=== PATIENT | female | born 1940 | race Two or more races ===

== ENCOUNTER 2021-06-01 09:58 | Inpatient (IN) | payer OTHER ==
[~2021-06-01] VITALS: Ht 152.4 cm; Wt 52.7 kg
[2021-06-01 10:45] LABS: BASOPHILS % (AUTO) 0.5 % (0.0-2.0); EOSINOPHILS % (AUTO) 7.9 % (1.0-6.0); HEMATOCRIT 40.1 % (36-46); HEMOGLOBIN 13.4 g/dL (12.0-16.0); LYMPHOCYTES # (AUTO) 1.3 K/uL (1.0-4.8); LYMPHOCYTES % (AUTO) 15.9 % (22.0-44.0); MEAN CORPUSCULAR HEMOGLOBIN 27.2 pg (26.0-34.0); MEAN CORPUSCULAR HGB CONC 33.5 G/dL (31.0-37.0); MEAN CORPUSCULAR VOLUME 81 fL (80-100); MONOCYTES # (AUTO) 0.7 K/uL (0.1-1.0); MONOCYTES % (AUTO) 8.2 % (2.0-9.0); NEUTROPHILS # (AUTO) 5.6 K/uL (1.8-7.7); NEUTROPHILS % (AUTO) 67.5 % (40.0-70.0); PLATELET COUNT (AUTO) 287 K/uL (150-450); RED BLOOD CELL COUNT(AUTO) 4.94 MIL/uL (4.00-5.20); RED CELL DISTRIBUTION WIDTH 14.3 % (11.5-14.5)
[2021-06-01 10:56] LABS: CALCIUM, TOTAL 9.8 mg/dL (8.8-10.5); CREATININE 1.27 mg/dL (0.60-1.30); POTASSIUM 4.2 mmol/L (3.5-5.1)
[2021-06-01 11:22] LABS: ALBUMIN 4.1 g/dL (3.4-5.0); TOTAL PROTEIN, SERUM 9.6 g/dL (6.4-8.2)
[2021-06-01 11:49] LABS: COVID AG,FIA SOURCE NASOPHARYNGEAL
[2021-06-01 17:07] VITALS: BP 137/52
[2021-06-01] MEDS ORDERED: ALBUTEROL SULFATE 2.5 MG/0.5 ML NEB SOLUTION NEB PRN ×2 (17:15→21:00)
[2021-06-01] MEDS ORDERED: IPRATROPIUM BROMIDE 0.5 MG/2.5 ML NEB SOLUTION NEB PRN ×2 (17:15→21:00)
[2021-06-01] MEDS: MethylPREDNISolone SOD SUCC 40 MG/ML VIAL IVP SCH ×2 (18:13→23:01)
[2021-06-01] MEDS ORDERED: LISI-893 PO (18:41)
[2021-06-01] MEDS ORDERED: METF-1211 PO (18:41)
[2021-06-01] MEDS ORDERED: ASPI-1450 PO (18:41)
[2021-06-01] MEDS ORDERED: FURO40 PO (18:41)
[2021-06-01] MEDS ORDERED: ATOR40TA28 PO (18:41)
[2021-06-01] MEDS ORDERED: METO25XL PO (18:41)
[2021-06-01] MEDS ORDERED: LEVO50 PO (18:41)
[2021-06-01] MEDS ORDERED: ASPI-1444 PO (19:42)
[2021-06-01] MEDS ORDERED: PNEUMOCOCCAL VACCINE POLYVALENT 0.5 ML VIAL [PPSV23] IM. ONE (19:45)
[2021-06-01 19:53] VITALS: BP 133/80
[2021-06-01] MEDS ORDERED: ZOLPIDEM TARTRATE 5 MG TABLET PO PRN (21:00)
[2021-06-01] MEDS ORDERED: ACETAMINOPHEN 325 MG TABLET PO PRN (21:00)
[2021-06-01] MEDS ORDERED: HYDROCODONE/ACETAMINOPHEN 5-325 MG TABLET PO PRN (21:00)
[2021-06-01] MEDS ORDERED: BISACODYL 10 MG RECTAL RECTAL SUPPOSITORY PR PRN (21:00)
[2021-06-01] MEDS ORDERED: METOPROLOL SUCCINATE 25 MG ER TABLET PO SCH (21:00)
[2021-06-01] MEDS ORDERED: MORPHINE SULFATE 2 MG/ML SYRINGE IVP PRN (21:00)
[2021-06-01] MEDS ORDERED: MAGNESIUM HYDROXIDE SUSPENSION 30 ML UDCUP PO PRN (21:00)
[2021-06-01] MEDS ORDERED: ONDANSETRON HCL 4 MG/2 ML VIAL IVP PRN (21:00)
[2021-06-01] MEDS: DOCUSATE SODIUM 100 MG CAPSULE PO SCH (21:00)
[2021-06-01 22:07] LABS: GLUCOMETER DEV NAME(LOC) 5N.1C; GLUCOSE,POINT OF CARE 102 MG/DL (70-110)
[2021-06-01] MEDS: HEPARIN SODIUM,PORCINE 5,000 UNITS/ML VIAL SQ SCH (23:01)
[2021-06-01] MEDS: ATORVASTATIN CALCIUM 40 MG TABLET PO SCH (23:01)
[2021-06-02] VITALS (7 sets, daily range): BP systolic 112–138; BP diastolic 65–85
[2021-06-02] MEDS: LEVOTHYROXINE SODIUM 50 MCG TABLET PO SCH (06:01)
[2021-06-02] MEDS: MethylPREDNISolone SOD SUCC 40 MG/ML VIAL IVP SCH ×3 (08:30→23:09)
[2021-06-02] MEDS: HEPARIN SODIUM,PORCINE 5,000 UNITS/ML VIAL SQ SCH ×3 (08:30→23:09)
[2021-06-02] MEDS: PANTOPRAZOLE SODIUM 40 MG/VIAL IVP SCH (08:30)
[2021-06-02] MEDS: DOCUSATE SODIUM 100 MG CAPSULE PO SCH ×2 (08:31→20:10)
[2021-06-02] MEDS: LISINOPRIL 10 MG TABLET PO SCH (08:31)
[2021-06-02] MEDS: ASPIRIN 81 MG DR TABLET PO SCH (08:31)
[2021-06-02] MEDS ORDERED: FUROSEMIDE 40 MG TABLET PO SCH (09:00)
[2021-06-02 13:06] LABS: GLUCOMETER DEV NAME(LOC) 5N.3; GLUCOSE,POINT OF CARE 154 MG/DL (70-110)
[2021-06-02 18:21] LABS: GLUCOMETER DEV NAME(LOC) 5N.3; GLUCOSE,POINT OF CARE 224 MG/DL (70-110)
[2021-06-02] MEDS ORDERED: DEXTROSE 50%-WATER 25 GM/50 ML SYRINGE IVP PRN (19:30)
[2021-06-02] MEDS: ATORVASTATIN CALCIUM 40 MG TABLET PO SCH (20:06)
[2021-06-02] MEDS: INSULIN LISPRO 100 UNITS/ML SQ PRN (23:10)
[2021-06-03] VITALS (7 sets, daily range): BP systolic 106–141; BP diastolic 57–87
[2021-06-03 05:51] LABS: GLUCOMETER DEV NAME(LOC) 5N.3; GLUCOSE,POINT OF CARE 309 MG/DL (70-110)
[2021-06-03] MEDS: LEVOTHYROXINE SODIUM 50 MCG TABLET PO SCH (06:17)
[2021-06-03 06:51] LABS: GLUCOMETER DEV NAME(LOC) 5N.3; GLUCOSE,POINT OF CARE 134 MG/DL (70-110)
[2021-06-03] MEDS: PANTOPRAZOLE SODIUM 40 MG/VIAL IVP SCH (09:16)
[2021-06-03] MEDS: HEPARIN SODIUM,PORCINE 5,000 UNITS/ML VIAL SQ SCH ×3 (09:16→23:29)
[2021-06-03] MEDS: MethylPREDNISolone SOD SUCC 40 MG/ML VIAL IVP SCH ×3 (09:16→23:29)
[2021-06-03] MEDS ORDERED: REGADENOSON 0.4 MG/5 ML PF SYRINGE IVP ONE ×2 (10:00→18:27)
[2021-06-03 10:16] LABS: CREATININE 1.14 mg/dL (0.60-1.30); POTASSIUM 5.1 mmol/L (3.5-5.1)
[2021-06-03] MEDS ORDERED: SESTAMIBI TC99M/UD ISOTOPE 1 EA INJ INJ ONE ×2 (10:35→12:45)
[2021-06-03] MEDS ORDERED: AMINOPHYLLINE 25 MG/ML 10 ML VIAL IVP ONE (11:15)
[2021-06-03] MEDS: DOCUSATE SODIUM 100 MG CAPSULE PO SCH ×2 (11:58→20:46)
[2021-06-03] MEDS: ASPIRIN 81 MG DR TABLET PO SCH (11:58)
[2021-06-03] MEDS: LISINOPRIL 10 MG TABLET PO SCH (11:58)
[2021-06-03 12:36] LABS: GLUCOMETER DEV NAME(LOC) 5N.3; GLUCOSE,POINT OF CARE 140 MG/DL (70-110)
[2021-06-03] MEDS: INSULIN LISPRO 100 UNITS/ML SQ PRN ×2 (17:54→20:48)
[2021-06-03 18:27] LABS: GLUCOMETER DEV NAME(LOC) 5N.3; GLUCOSE,POINT OF CARE 264 MG/DL (70-110)
[2021-06-03] MEDS ORDERED: AMINOPHYLLINE 25 MG/ML 10 ML VIAL ONE (18:27)
[2021-06-03] MEDS: ATORVASTATIN CALCIUM 40 MG TABLET PO SCH (20:46)
[2021-06-04] VITALS (7 sets, daily range): BP systolic 101–140; BP diastolic 60–82
[2021-06-04] MEDS: LEVOTHYROXINE SODIUM 50 MCG TABLET PO SCH (06:27)
[2021-06-04] MEDS: INSULIN LISPRO 100 UNITS/ML SQ PRN ×4 (06:28→20:57)
[2021-06-04] MEDS: MethylPREDNISolone SOD SUCC 40 MG/ML VIAL IVP SCH (07:55)
[2021-06-04] MEDS: ASPIRIN 81 MG DR TABLET PO SCH (07:55)
[2021-06-04] MEDS: LISINOPRIL 10 MG TABLET PO SCH (07:55)
[2021-06-04] MEDS: HEPARIN SODIUM,PORCINE 5,000 UNITS/ML VIAL SQ SCH ×3 (07:55→23:59)
[2021-06-04] MEDS: PANTOPRAZOLE SODIUM 40 MG/VIAL IVP SCH (07:56)
[2021-06-04] MEDS: DOCUSATE SODIUM 100 MG CAPSULE PO SCH ×2 (07:56→20:58)
[2021-06-04 13:16] LABS: ABG BASE EXCESS -1.9 mmol/L (-2.0-3.0); ABG CARBOXYHEMOGLOBIN 0.8 % (0.0-1.5); ABG HCO3 22.3 mmol/L (22.0-26.0); ABG METHEMOGLOBIN 0.3 % (0.0-1.5); ABG OXYGEN CONTENT 13.9 mL/dL (15.0-23.0); ABG OXYHEMOGLOBIN 72.2 % (94.0-100.0); ABG PCO2 43 mmHg (35-45); ABG PH 7.359 (7.35-7.450); ABG TOTAL HEMOGLOBIN 13.7 G/dL (12.0-18.0); SOURCE, BLOOD GAS ARTERIAL; TEMPERATURE, FAHRENHEIT, BG 97.6 FAHREN (96.0-98.6)
[2021-06-04 13:24] LABS: PO2, ARTERIAL BG 36.1 mmHg (71.0-79.0)
[2021-06-04 13:25] LABS: O2 DEVICE,BLOOD GAS ROOM AIR (ROOM AIR); SITE, BLOOD GAS RT RADIAL
[2021-06-04] MEDS: PredniSONE 20 MG TABLET PO SCH (14:29)
[2021-06-04 16:56] LABS: GLUCOMETER DEV NAME(LOC) 5N.3; GLUCOSE,POINT OF CARE 246 MG/DL (70-110)
[2021-06-04 16:56] LABS: GLUCOMETER DEV NAME(LOC) 5N.3; GLUCOSE,POINT OF CARE 169 MG/DL (70-110)
[2021-06-04 16:56] LABS: GLUCOMETER DEV NAME(LOC) 5N.3; GLUCOSE,POINT OF CARE 226 MG/DL (70-110)
[2021-06-04 18:42] LABS: GLUCOMETER DEV NAME(LOC) 5N.3; GLUCOSE,POINT OF CARE 228 MG/DL (70-110)
[2021-06-04] MEDS: ATORVASTATIN CALCIUM 40 MG TABLET PO SCH (20:58)
[2021-06-05 00:16] LABS: GLUCOMETER DEV NAME(LOC) 5N.3; GLUCOSE,POINT OF CARE 285 MG/DL (70-110)
[2021-06-05 04:16] VITALS: BP 145/71
[2021-06-05] MEDS: LEVOTHYROXINE SODIUM 50 MCG TABLET PO SCH (06:14)
[2021-06-05 07:46] VITALS: BP 145/80
[2021-06-05] MEDS: DOCUSATE SODIUM 100 MG CAPSULE PO SCH (09:00)
[2021-06-05] MEDS: PredniSONE 20 MG TABLET PO SCH (09:07)
[2021-06-05] MEDS: PANTOPRAZOLE SODIUM 40 MG/VIAL IVP SCH (09:07)
[2021-06-05] MEDS: HEPARIN SODIUM,PORCINE 5,000 UNITS/ML VIAL SQ SCH ×2 (09:07→16:58)
[2021-06-05] MEDS: ASPIRIN 81 MG DR TABLET PO SCH (09:08)
[2021-06-05] MEDS: LISINOPRIL 10 MG TABLET PO SCH (09:08)
[2021-06-05 09:51] LABS: GLUCOMETER DEV NAME(LOC) 5S.1B; GLUCOSE,POINT OF CARE 113 MG/DL (70-110)
[2021-06-05 11:36] VITALS: BP 134/75
[2021-06-05 11:56] LABS: GLUCOMETER DEV NAME(LOC) 5S.1B; GLUCOSE,POINT OF CARE 233 MG/DL (70-110)
[2021-06-05] MEDS: INSULIN LISPRO 100 UNITS/ML SQ PRN ×2 (12:05→17:31)
[2021-06-05 15:38] VITALS: BP 148/77
[2021-06-05] MEDS ORDERED: PANT-31 PO (15:44)
[2021-06-05] MEDS ORDERED: PRED-554 PO (15:45)
[2021-06-05 18:02] LABS: GLUCOMETER DEV NAME(LOC) 5N.3; GLUCOSE,POINT OF CARE 293 MG/DL (70-110)
== END 2021-06-05 19:30 | disposition home or self-care (01) | DRG 192 ==
LOC: EMS 09:58 → 5N 15:19
PROVIDERS: ADMIT Hospitalist; ATTEND Hospitalist
DX: J47.1 Bronchiectasis with (acute) exacerbation (principal); I10 Essential (primary) hypertension; E11.9 Type 2 diabetes mellitus without complications; E03.9 Hypothyroidism, unspecified; E78.5 Hyperlipidemia, unspecified; I44.7 Left bundle-branch block, unspecified; J84.10 Pulmonary fibrosis, unspecified; Z20.822 Contact with and (suspected) exposure to COVID-19
CPT/HCPCS: 36600; 71045; 71260; 78452; 80048; 80053; 82550; 82805; 82962; 83880; 84484; 85025; 85610; 85730; 93005; 93306; 99285; A9500; C9113; J0280; J1644; J2785; J2920; 36415-L1; 36415-TC